=== PATIENT | male | born 1990 | race Caucasian/White ===

== ENCOUNTER 2016-11-02 08:40 | Emergency (ER) | payer OTHER ==
[~2016-11-02] VITALS: Ht 177.8 cm; Wt 77.5 kg
[2016-11-02] MEDS ORDERED: SODIUM CHLORIDE 0.9% 1,000 ML IV ONE (09:15)
[2016-11-02] MEDS ORDERED: MORPHINE SULFATE 4 MG/ML, 1ML IVPush PRN (09:30)
[2016-11-02] MEDS ORDERED: SODIUM CHLORIDE FLUSH 10ML SYR IVF ONE (09:30)
[2016-11-02] MEDS ORDERED: ONDANSETRON 2MG/ML, 2ML IVPush ONE (09:30)
[2016-11-02] MEDS ORDERED: SODIUM CHLORIDE 0.9% 1,000ML IVBOLUS ONE (09:30)
[2016-11-02] MEDS ORDERED: ONDANSETRON 2MG/ML, 2ML ONE (09:45)
[2016-11-02] MEDS ORDERED: MORPHINE SULFATE 4 MG/ML, 1ML ONE (09:45)
[2016-11-02 09:48] LABS: BLOOD UREA NITROGEN 14 mg/dL (7-18)
[2016-11-02 09:52] LABS: ASPARTATE AMINO TRANSFERASE 16 U/L (15-37)
[2016-11-02] MEDS ORDERED: OMNIPAQUE 350 MG/ML, 100ML BOTTLE ONE (10:55)
[2016-11-02 12:53] VITALS: BP 104/68
== END 2016-11-02 12:56 | disposition home or self-care (01) ==
LOC: ED 12:50
DX: A08.4 Viral intestinal infection, unspecified (principal); R11.2 Nausea with vomiting, unspecified
CPT/HCPCS: 36415; 74020; 74177; 80053; 81003; 83690; 85025; 96361; 96374; 96375; 99285; J2405; J7030; Q9967